=== PATIENT | male | born 1985 | race Caucasian/White ===

== ENCOUNTER 2018-03-07 20:06 | Emergency (ER) | payer OTHER ==
[2018-03-07] MEDS ORDERED: oxyCODONE TAB* 5 MG TAB PO ONE (21:44)
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
[2018-03-07 23:10] LABS: Urine Appearance Clear; Urine Blood Negative (Negative); Urine Color Yellow; Urine Ketones Negative (Negative); Urine Protein Negative (Negative); Urine Specific Gravity 1.018 (1.010-1.030); Urine Urobilinogen Negative (Negative)
[2018-03-07 23:56] VITALS: BP 142/86
== END 2018-03-07 23:55 | disposition home or self-care (01) ==
LOC: ED 20:06
DX: S29.012A Strain of muscle and tendon of back wall of thorax, initial encounter (principal); X58.XXXA Exposure to other specified factors, initial encounter; Y92.9 Unspecified place or not applicable; R06.00 Dyspnea, unspecified
CPT/HCPCS: 71046; 81003; 99282; A9270-GY